=== PATIENT | male | born 1995 | race African-American/Black ===

== ENCOUNTER 2025-04-18 15:07 | Emergency (ER) | payer MEDICAID ==
[~2025-04-18] VITALS: Ht 180.3 cm; Wt 63.0 kg
[2025-04-18 15:15] VITALS: O2SAT 100
[2025-04-18] MEDS: LIDOCAINE HCL/EPINEPHRINE 1%-EPI 1:100,000 20ML VIAL INFIL ONE (16:15)
[2025-04-18] MEDS ORDERED: DOXY100T2 MT (18:04)
[2025-04-18 18:20] VITALS: BP 109/70; PULSE 60; RESP 16; TEMP 36.9; O2SAT 99
== END 2025-04-18 18:26 | disposition home or self-care (01) ==
LOC: ER 15:07
DX: L02.416 Cutaneous abscess of left lower limb (principal); Z98.890 Other specified postprocedural states; Z91.018 Allergy to other foods
CPT/HCPCS: 10060; 99283; J2004; Z7610 ×2